=== PATIENT | female | born 1970 | race Two or more races ===

== ENCOUNTER → 2024-08-25 | Outpatient (CLI) | payer BC, SELFPAY ==
--- NOTE | 2024-08-25 12:52 | XR_ITS ---
Examination: Breast ultrasound, unilateral, right complete Date and time of exam: August 25, 2024 at 1325 hours INDICATIONS: Mammogram August 12, 2024 5 mm nodule indistinct margins inner right breast Technique: Real-time llanes scale ultrasonographic imaging performed right breast including all 4 quadrants as well as nipple retroareolar and axillary region. Findings: 3:00 cyst 6 x 3 x 5 mm No solid nodules IMPRESSION: BI-RADS Category 2: Benign findings
--- NOTE | 2024-08-25 12:52 | XR_ITS ---
Examination: Diagnostic digital mammography, unilateral, right Computer aided detection 3-D breast Tomosynthesis, unilateral Date and time of exam: August 25, 2024 1321 hours INDICATIONS: Mammogram August 12, 2024 5 mm nodule inner right breast Technique: Nonmagnified MLO, CC views of the right breast have been obtained, reconstructed from 3-D Tomosynthesis images. R2 computer aided detection program utilized for evaluation of suspicious masses and/or abnormal calcifications. 3-D Tomosynthesis images obtained. Findings: Scattered areas of fibroglandular density Right breast sonogram today indicates 3:00 Current mammogram demonstrates 2 circumscribed nodules inner right breast, each 4 to 5 mm Impression: BI-RADS Category 3: Probably benign findings One additional 6 month right mammogram follow-up is needed to document stability of 2 nodules inner right breast described above
== END | disposition home or self-care (01) ==
LOC: CDIM 12:35
PROVIDERS: PCP Internal Medicine; Referring Provider Internal Medicine; Visit Provider Internal Medicine
DX: R92.331 Mammographic heterogeneous density, right breast (principal); N63.10 Unspecified lump in the right breast, unspecified quadrant; N60.01 Solitary cyst of right breast
CPT/HCPCS: 76641; 77061; 77065; G0279

== ENCOUNTER 2024-10-16 08:02 | Outpatient (AMB) | payer BC, SELFPAY ==
[2024-10-16 08:24] VITALS: BP 116/78; PULSE 78; RESP 18; TEMP 36.4; O2SAT 98; BMI 35.9
--- NOTE | 2024-10-16 08:24 | PD.ORTHCLVIS ---
Vital signs 10/16/24 08:24 Height 1.52 m Height Method Stated Weight 83.546 kg Weight Measurement Method Standing Scale BMI 35.9 BP 116/78 Blood Pressure Source Automatic Cuff Blood Pressure Location Left Upper Arm Position Sitting Respiration 18 Pulse 78 Pulse Source Monitor Temp 97.6 F Temp Source Temporal Artery Scan Pulse Oximetry (%) 98 Oxygen Delivery Method Room Air Med/Allergies Allergies & Medications Allergies No Known Allergies Allergy (Verified 10/16/24 08:24) Medication Reconciliation ibuprofen 200 mg capsule 200 mg PO Q6H PRN 10/16/24 [History Confirmed 10/16/24] Exam Exam Breathing is nonlabored. Patient has a normal mood and affect. Bilateral extremities were evaluated and demonstrates sensation intact to light touch. Palpable pedal pulses are present. No significant edema is present. Bilateral hips were examined. The patient has no pain with log roll of the hips. Internal rotation to 30 degrees and external rotation to 30 degrees is painless. Negative FADIR. Left knee was examined today. The left knee is in reasonable alignment. Range of motion from 0-120 degrees. Knee is stable to varus and valgus as well as AP translation with <5mm. Patient has a negative McMurrays. There is no pain with patellofemoral compression and no crepitus noted. The knee is nontender to palpation. The right knee was also examined. The right knee is in varus alignment. Range of motion from 0-115 degrees. Knee is stable to varus and valgus as well as AP translation with <5mm. Patient has a negative McMurrays. There is no pain with patellofemoral compression and no crepitus noted. The knee is tender to palpation medially. X-rays from [facility] demonstrate complete obliteration of the medial joint space with osteophytes and varus deformity Assessment and Plan Problem List (1) Arthritis of knee, right: Status: Acute Plan: Patient is a pleasant 54-year-old female with right knee pain and right knee arthritis. We discussed nonoperative and operative options. She has tried Anti-inflammatories, prior arthroscopy, And physical therapy. At this point the pain is affecting her quality life and happiness to surgery. We discussed total knee replacement space loss of arthritis on x-ray and failure Of conservative treatment. The nature and purpose of the total knee replacement, alternative method(s) of treatment, the material risks involved, and the possibility of complications were fully explained to the patient. The patient does NOT have any of the following contraindications to TKA: - Active infection of the knee joint, OR - Active systemic bacteremia, OR - Active skin infection or open wound at surgical site, OR - Neuropathic arthritis, OR - Severe, rapidly progressive neurological disease, OR - Severe medical condition that makes risks of surgery outweigh the potential benefit The patient was told the most common risks and complications associated with a total knee replacement include, but are not limited to: blood clots in the leg, fatal pulmonary embolism, dislocation of the prosthesis, intraoperative and postoperative fractures of the femur or tibia, infection, failure of the prosthesis or grafting materials, complications from anesthesia, reactions to blood transfusions, postoperative leg length inequality, instability of the knee replacement, nerve damage or injury, vascular injury, delayed wound healing, infection, other injury or even . In addition, there are risks associated with anesthesia given during this operation. Also, the patient was told that after undergoing a total knee replacement there may still be persistent pain or disability. The patient was informed that the success of this operation in part depends upon the mechanical devices which are going to be implanted and that these devices can fail or malfunction, and may need to be repaired or replaced and there are no guarantees as to the longevity of this device or its parts and that it or its parts could fail prematurely. The patient was also notified that during the course of surgery, there may be a need to use bone graft from donors, and that any bone graft used will be carefully screened for communicable diseases, including AIDS, hepatitis, Azael-Creutzfeldt, or other diseases, but despite the screening procedures, there is a small chance that they could contract one of these diseases. Finally, the patient was asked to follow completely and fully with all advice and recommended treatments, and that recovery and ultimate outcome are affected by their compliance with recommended treatment. We discussed the risks, benefits and treatment alternatives, and the patient is interested in proceeding with surgery. We will try to set this up as expeditiously as possible. 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 Level 3 ([id number]) MA Intake Visit Data Collection New Patient or Established: Established Patient (seen at [facility] within 3 years) Reason for Visit:: right knee pain Seen by Clinical Staff ONLY (RN/MA): No Cigar Head Perforator Required: No PCP or OBGYN visit in last 3 months: Yes Hx Now: No Do You Feel Safe at Home: Yes Authorities Contacted: N/A Questionairres Past Medical History Past Medical History Have you ever been diagnosed with any of the following: Neurological Problems Seizures: No Cardiology Problems Congestive Heart Failure: No Respiratory Problems Chronic Obstructive Pulmonary Disease (COPD): No Stomache/Intestinal Problems Gall Bladder Disease: Yes (open) Obesity: Yes Genital/Urinary Problems Renal Disease: No Reproductive Problems Previous Pregnancies: Yes (10) Musculoskeletal Problems Arthritis: Yes Carpal Tunnel Syndrome: Yes (bilateral) Head,Eye,Nose,Throat Problems Cataracts: Yes (right) Endocrine Problems Diabetes Mellitus Type 1: No Diabetes Mellitus Type 2: No Blood Problems Anemia: No Psychologic Problems Depression: No Anxiety: No Post Traumatic Stress Disorder: No Other Problems Hospitalization: Yes (asthma child, surgery) Shingles: No Falls: No Blood Transfusions: No Blood Transfusion Reaction: No Anesthesia Reactions: No MRSA: No Chicken Pox: Yes Cancer: No Subjective Visit Visit for: new patient and knee Immunization / Flu Flu Vaccine in the Last 12 Months: No Flu Vaccine Exclusion Criteria: Refused by Patient History of Present Illness Chief complaint: Right knee 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 This been ongoing for over 5 years. She has had 2 prior meniscectomies in the past. They did not provide great relief. She is also tried extensive physical therapy and anti-inflammatories including ibuprofen and Voltaren. The pain is starting to affect her quality life and happiness. She reports the knee swells and she is always in pain. She does have pain at rest Personal History Occupation: DISABLED Hobbies: NONE Pain Pain level (0-10): 0 Associated signs & symptoms: none Ambulatory data Ambulatory device: none Treatments Improvement with previous injections: No Improvement with PT: No Improvement with NSAIDS: no Review of Systems Review of Systems: All systems negative unless otherwise noted in HPI.
== END 2024-10-16 08:44 | disposition home or self-care (01) ==
LOC: HODSRG 08:02
PROVIDERS: PCP Internal Medicine; Referring Provider Internal Medicine; Supervising Provider Orthopaedic Surgery Adult Reconstructive Orthopaedic Surgery; Visit Provider Orthopaedic Surgery Adult Reconstructive Orthopaedic Surgery
DX: M17.11 Unilateral primary osteoarthritis, right knee (principal); M25.561 Pain in right knee
CPT/HCPCS: 99203; G0463

== ENCOUNTER → 2024-11-17 | Outpatient (CLI) | payer MEDICAID, SELFPAY ==
--- NOTE | 2024-11-17 15:11 | XR_ITS ---
Examination: PA lateral chest 2 views TECHNIQUE: Upright PA lateral chest 2 views Exam date and time: November 17, 2024 1523 hours INDICATIONS: Preop knee surgery. FINDINGS: Normal heart size No pneumonia or pulmonary edema The osseous structures are intact IMPRESSION: No active disease
== END | disposition home or self-care (01) ==
PROVIDERS: Referring Provider Student in an Organized Health Care Education/Training Program; Visit Provider Student in an Organized Health Care Education/Training Program
DX: R05.9 Cough, unspecified (principal)
CPT/HCPCS: 71046

== ENCOUNTER → 2024-12-01 | Outpatient (CLI) | payer MEDICAID, SELFPAY ==
--- NOTE | 2024-12-01 11:56 | XR_ITS ---
Examination: Knee, left , 3 views Technique: Knee AP, lateral, oblique 3 views Date and time of exam: 25 1205 hours INDICATIONS: Left knee pain beginning one month ago. FINDINGS: Moderate tricompartment osteoarthritis No fracture Moderate knee effusion IMPRESSION: Moderate tricompartment osteoarthritis, most severe medial joint space
== END | disposition home or self-care (01) ==
LOC: SDIM 11:45
DX: M17.12 Unilateral primary osteoarthritis, left knee (principal)
CPT/HCPCS: 73562

== ENCOUNTER → 2024-12-11 | Outpatient (CLI) | payer MEDICAID, SELFPAY ==
--- NOTE | 2024-12-11 15:28 | XR_ITS ---
Examination: CT right lower extremity, without contrast. 2-D sagittal reconstructions. 2-D coronal reconstructions. 3-D reconstructions. Date and time of exam:December 11, 2024 1611 hrs. Indications: Diagnosis right knee osteoarthritis Several years CTDI: vol (mGy):26.2 DLP: (mGycm):1132 Technique: Multiple 1.25 mm axial sections of the right lower extremity without intravenous contrast have been obtained. 2-D sagittal and coronal reconstructions have been obtained. 3-D reconstructions have been obtained. Low dose protocols were performed. One or more of the following dose reduction techniques were used; automated exposure control, adjustment of the mA and/or KV according to patient size, use of iterative reconstruction technique. Findings: Moderate osteopenia Moderate narrowing right hip joint No right hip fracture or dislocation Severe right knee tricompartment osteoarthritis Severe narrowing medial joint space with subarticular sclerosis No fracture No patellar dislocation Impression: Severe right knee tricompartment osteoarthritis
== END | disposition home or self-care (01) ==
PROVIDERS: Referring Provider Orthopaedic Surgery Adult Reconstructive Orthopaedic Surgery; Visit Provider Orthopaedic Surgery Adult Reconstructive Orthopaedic Surgery
DX: M17.11 Unilateral primary osteoarthritis, right knee (principal)
CPT/HCPCS: 73700

== ENCOUNTER 2024-12-15 07:54 | Outpatient (AMB) | payer MEDICAID, SELFPAY ==
[2024-12-15 08:10] VITALS: BP 114/75; PULSE 73; RESP 19; TEMP 36.6; O2SAT 98; BMI 36.6
--- NOTE | 2024-12-15 08:10 | PD.ORTHCLVIS ---
Vital signs 12/15/24 08:10 Height 1.52 m Height Method Measured Weight 84.623 kg Weight Measurement Method Standing Scale BMI 36.6 BP 114/75 Blood Pressure Source Automatic Cuff Blood Pressure Location Right Upper Arm Position Sitting Respiration 19 Pulse 73 Pulse Source Monitor Temp 97.8 F Temp Source Oral Pulse Oximetry (%) 98 Oxygen Delivery Method Room Air Med/Allergies Allergies & Medications Allergies No Known Allergies Allergy (Verified 12/15/24 08:11) Medication Reconciliation ibuprofen 200 mg capsule 200 mg PO Q6H PRN 10/16/24 [History Confirmed 12/15/24] Exam Exam Breathing is nonlabored. Patient has a normal mood and affect. Bilateral extremities were evaluated and demonstrates sensation intact to light touch. Palpable pedal pulses are present. No significant edema is present. Bilateral hips were examined. The patient has no pain with log roll of the hips. Internal rotation to 30 degrees and external rotation to 30 degrees is painless. Negative FADIR. Left knee was examined today. The left knee is in reasonable alignment. Range of motion from 0-120 degrees. Knee is stable to varus and valgus as well as AP translation with <5mm. Patient has a negative McMurrays. There is no pain with patellofemoral compression and no crepitus noted. The knee is nontender to palpation. The right knee was also examined. The right knee is in varus alignment. Range of motion from 0-115 degrees. Knee is stable to varus and valgus as well as AP translation with <5mm. Patient has a negative McMurrays. There is no pain with patellofemoral compression and no crepitus noted. The knee is tender to palpation medially. X-rays from [facility] demonstrate complete obliteration of the right medial joint space with osteophytes and varus deformity Assessment and Plan Problem List (1) Arthritis of knee, right: Status: Acute Plan: Patient is a pleasant 54-year-old female with right knee pain and right knee arthritis. We discussed nonoperative and operative options. She has tried Anti-inflammatories, prior arthroscopy, And physical therapy. At this point the pain is affecting her quality life and happiness to surgery. We discussed total knee replacement in great detail. The nature and purpose of the total knee replacement, alternative method(s) of treatment, the material risks involved, and the possibility of complications were fully explained to the patient. The patient does NOT have any of the following contraindications to TKA: - Active infection of the knee joint, OR - Active systemic bacteremia, OR - Active skin infection or open wound at surgical site, OR - Neuropathic arthritis, OR - Severe, rapidly progressive neurological disease, OR - Severe medical condition that makes risks of surgery outweigh the potential benefit The patient was told the most common risks and complications associated with a total knee replacement include, but are not limited to: blood clots in the leg, fatal pulmonary embolism, dislocation of the prosthesis, intraoperative and postoperative fractures of the femur or tibia, infection, failure of the prosthesis or grafting materials, complications from anesthesia, reactions to blood transfusions, postoperative leg length inequality, instability of the knee replacement, nerve damage or injury, vascular injury, delayed wound healing, infection, other injury or even . In addition, there are risks associated with anesthesia given during this operation. Also, the patient was told that after undergoing a total knee replacement there may still be persistent pain or disability. The patient was informed that the success of this operation in part depends upon the mechanical devices which are going to be implanted and that these devices can fail or malfunction, and may need to be repaired or replaced and there are no guarantees as to the longevity of this device or its parts and that it or its parts could fail prematurely. The patient was also notified that during the course of surgery, there may be a need to use bone graft from donors, and that any bone graft used will be carefully screened for communicable diseases, including AIDS, hepatitis, Azael-Creutzfeldt, or other diseases, but despite the screening procedures, there is a small chance that they could contract one of these diseases. Finally, the patient was asked to follow completely and fully with all advice and recommended treatments, and that recovery and ultimate outcome are affected by their compliance with recommended treatment. We discussed the risks, benefits and treatment alternatives, and the patient is interested in proceeding with surgery. We will try to set this up as expeditiously as possible. Office Procedures GNS Level of Care Nursing/Assessment Patient Status: Established Patient Nursing Assessment/Reassesment: Medication Reconciliation, Update PMH in EMR and Vital Signs Coordination of Care: Complex Care/Chronic Disease 5 or more, Education Complex Pt/Fam, Consent,records obtained, informed consent, 2-3 Insurance Autorizations needed, Results/Orders obtained and Staff clarify orders Established Patient Charge Established Patient Point Assignment: 125 Established Patient Point Charge: EP Level 4 (120-155) [place] Intake Visit Data Collection New Patient or Established: Established Patient (seen at [facility] within 3 years) Reason for Visit:: PRE OP RIGHT TKA Do You Feel Safe at Home: Yes Questionairres Past Medical History Past Medical History Have you ever been diagnosed with any of the following: Neurological Problems Seizures: No Cardiology Problems Congestive Heart Failure: No Respiratory Problems Chronic Obstructive Pulmonary Disease (COPD): No Smoking: Yes Smoking Cessation Counseling: Yes Stomache/Intestinal Problems Gall Bladder Disease: Yes (open) Obesity: Yes Genital/Urinary Problems Renal Disease: No Reproductive Problems Previous Pregnancies: Yes (10) Musculoskeletal Problems Arthritis: Yes Carpal Tunnel Syndrome: Yes (bilateral) Head,Eye,Nose,Throat Problems Cataracts: Yes (right) Endocrine Problems Diabetes Mellitus Type 1: No Diabetes Mellitus Type 2: No Blood Problems Anemia: No Psychologic Problems Depression: No Anxiety: No Post Traumatic Stress Disorder: No Other Problems Hospitalization: Yes (asthma child, surgery) Shingles: No Falls: No Blood Transfusions: No Blood Transfusion Reaction: No Anesthesia Reactions: No MRSA: No Chicken Pox: Yes Cancer: No Subjective Visit Visit for: knee Immunization / Flu Flu Vaccine in the Last 12 Months: No Flu Vaccine Exclusion Criteria: No Exclusion Criteria History of Present Illness Chief complaint: PRE OP RIGHT TKA 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 This been ongoing for over 5 years. She has had 2 prior meniscectomies in the past. They did not provide great relief. She has also tried extensive physical therapy and anti-inflammatories including ibuprofen and Voltaren. The pain is starting to affect her quality life and happiness. She reports the knee swells and she is always in pain. She does have pain at rest Personal History Occupation: DISABLED Hobbies: NONE Red flag PMH: smoker BMI Counceling provided: Yes Pain Pain level (0-10): 0 Pain location: inside (medial) Pain timing: increases with activity Associated signs & symptoms: stiffness Ambulatory data Ambulatory device: none Treatments Improvement with previous injections: No Improvement with PT: No Improvement with NSAIDS: no Review of Systems Review of Systems: All systems negative unless otherwise noted in HPI.
--- NOTE | 2024-12-15 08:25 | XR_ITS ---
Examination: Left knee 4 views TECHNIQUE: AP oblique lateral axial left knee 4 views Exam date and time: October 17, 2024 at 0833 hours INDICATIONS: Left knee pain several weeks FINDINGS: Comparison January 31, 2025 Mild to moderate tricompartment osteoarthritis, most severe medial joint space No patellar dislocation No fracture IMPRESSION: Mild to moderate tricompartment osteoarthritis
== END 2024-12-15 08:30 | disposition home or self-care (01) ==
LOC: HODSRG 07:54
PROVIDERS: Supervising Provider Orthopaedic Surgery Adult Reconstructive Orthopaedic Surgery; Visit Provider Orthopaedic Surgery Adult Reconstructive Orthopaedic Surgery
DX: M17.11 Unilateral primary osteoarthritis, right knee (principal); M25.561 Pain in right knee
CPT/HCPCS: 73564; 99214; G0463

== ENCOUNTER 2024-12-21 08:20 | Day surgery (SDC) | payer MEDICAID, SELFPAY ==
[2024-12-17 10:16] VITALS: BMI 35.6
[2024-12-17 12:26] LABS: Basophils % (Auto) 1 % (0-2.5); Eosinophils # (Auto) 0.2 Thou/mm3 (0.0-0.5); Eosinophils % (Auto) 4 % (0-10); Hematocrit 38.3 % (36.0-46.0); Hemoglobin 12.7 g/dL (12.0-16.0); Immature Granulocytes % (Auto) 0 % (0-0); Immature Granulocytes Auto 0.01 Thou/mm3 (0.00-0.00); Lymphocytes % (Auto) 47 % (10-50); Mean Corpuscular HGB Conc 33.2 g/dl (31.0-37.0); Mean Corpuscular Hemoglobin 28.7 pg (25.0-35.0); Mean Corpuscular Volume 87 fL (80-100); Monocytes # (Auto) 0.4 Thou/mm3 (0.0-0.8); Monocytes % (Auto) 6 % (0-12); Neutrophils # (Auto) 2.8 Thou/mm3 (1.8-7.7); Neutrophils % (Auto) 43 % (37-80); Nucleated Red Blood Cell % 0 /100 WBC (0); Platelet Count 377 Thou/mm3 (140-440); RDW Standard Deviation 41.4 fL (36.4-46.3); Red Blood Count 4.43 Miln/mm3 (4.00-5.20); White Blood Count 6.4 Thou/mm3 (3.6-11.0)
[2024-12-17 12:37] LABS: Partial Thromboplastin Time 28.5 Seconds (22.0-36.0); Prothrombin Time 10.6 Seconds (9.0-12.2)
[2024-12-17 12:51] LABS: Alanine Aminotransferase 12 U/L (10-49); Albumin, Serum 4.2 gm/dL (3.5-5.0); Albumin/Globulin Ratio 1.8 (1.2-2.2); Alkaline Phosphatase 82 U/L (46-116); Anion Gap 7 (7-16); Aspartate Amino Transferase 14 U/L (0-34); BUN/Creatinine Ratio 16 Ratio (12-20); Bilirubin,Total 0.5 mg/dL (0.3-1.2); Blood Urea Nitrogen 14 mg/dL (9-23); Calcium 9.2 mg/dL (8.3-10.6); Calcium (Corrected) 9.2 mg/dL (8.5-10.1); Carbon Dioxide 26.9 mMol/L (20.0-31.0); Chloride 105 mMol/L (98-107); Creatinine (Component) 0.9 mg/dL (0.6-1.3); Estimated Creatinine Clearance 70.1 mL/min (>60); Globulin 2.3 gm/dL (2.3-3.5); Glucose 100 mg/dL (74-106); Osmolality,Calculated 278 (275-295); Sodium 139 mMol/L (136-145); Total Protein 6.5 gm/dL (5.7-8.2); eGFR > 60 See Note
[2024-12-21] VITALS (18 sets, daily range): BP systolic 115–144; BP diastolic 59–88; PULSE 71–91; RESP 15–22; TEMP 36.1–36.6; O2SAT 92–98; BMI 36.9; BMI 13.0
[2024-12-21] MEDS: ACETAMINOPHEN 325 MG TABLET 650 MG PO (09:04)
[2024-12-21] MEDS: PREGABALIN 75 MG CAPSULE PO (09:05)
[2024-12-21] MEDS: MELOXICAM 7.5 MG TABLET PO (09:05)
[2024-12-21] MEDS: RINGERS LACTATED 1000 ML 1,000 ML 20 ML IV (09:06)
--- NOTE | 2024-12-21 09:07 | SUR.PREOP ---
Patient expressed gratitude for prayer before their procedure.
--- NOTE | 2024-12-21 11:57 | ESOP_ITS ---
Date of Procedure 12/21/24 Pre Op Diagnosis right knee osteoarthritis Post Op Diagnosis right knee osteoarthritis Procedure right total knee replacement mathew Findings full thickness cartilage loss and osteophytes Procedure Description Indication: The patient is a 54 year old who has a long history of right knee pain. X-rays show degenerative arthritis involving the knee. Over the past several years the patient has had increasing pain, progressive limitation in function. He has failed conservative measures including activity modification, physical therapy, injections, anti-inflammatories, and assistive devices. After a lengthy discussion of the risks and benefits, the patient presents now for total knee replacement. The nature and purpose of the total knee replacement, alternative method(s) of treatment, the material risks involved, and the possibility of complications were fully explained to the patient. The patient was told the most common risks and complications associated with a total knee replacement include, but are not limited to blood clots in the leg, fatal pulmonary embolism, dislocation of the prosthesis, intraoperative and postoperative fractures of the femur or tibia, infection, failure of the prosthesis or grafting materials, complications from anesthesia, reactions to blood transfusions, postoperative leg length inequality, instability of the knee replacement, nerve damage or injury, vascular injury, delayed wound healing, infections, other injury or even . In addition, there are risks associated with anesthesia given during this operation, temporary or permanent numbness on the skin lateral to the incision can be a complication unique to total knee surgery, and kneeling can be painful after knee replacement surgery. Also, the patient was told that after undergoing a total knee replacement there may still be pain or disability. We discussed with the patient that we will be using a robot-assisted technology. We discussed that there is a possibility of converting to manual instrumentation. The patient was informed that the success of this operation in part depends upon the mechanical devices which are going to be implanted and that these devices can fail or malfunction, and may need to be repaired or replaced and there are no guarantees as to the longevity of this device or its part and that it or its parts could fail prematurely. Finally, the patient was asked to follow completely and fully with all advice and recommended treatments, and that recovery and ultimate outcome are affected by their compliance with recommended treatment. Surgical technique: Patient was marked and consented in the pre-operative area. The patient was brought to the operating room and placed on the operating table in a supine position. Prior to positioning, a timeout procedure was performed between the surgeon, the anesthesiologist, and the nursing staff where the patient and the operative side were identified and confirmed. After adequate general anesthetic was obtained, the right lower extremity was prepped and draped in the usual sterile fashion. A weight based dose of Cefazolin were administered within 1 hour prior to incision. The robot was preregistered and calirated before the incision. The extremity was exsanguinated with an esmarch badge and tourniquet inflated to 250mmHg. A midline incision was made. A median parapatellar arthrotomy was made. The patella was subluxed laterally. A medial release was performed to expose the medial tibia. His femoral and tibial pins were placed through an intra incisional manner for both cases. Every effort was made to ensure that the distalmost aspect of the pin was hung in the second cortex. The arrays were then tightened several times to ensure that it was fixed for the remainder of the case. Both femoral and tibial checkpoints were then placed. We then went through the registration process of the bone. We then assessed the knee deformity and attempted to correct it. We also used the robot to aid in judging laxity in both extension and flexion. Final based on laxity and alignment we changed the preoperative assessment to obtain proper proper implant positioning and to correct deformity. Attention was then placed to the tibia. We made a tibial cut using the robot ensuring that both the MCL and the patella tendon were protected with retractors. We then went to the femur and made the posterior cut followed by the anterior cut and the anterior chamfer. The bone was then removed and we made a distal femur cut and a posterior chamfer cut. We verified all cuts. A trial reduction was performed with a size 3 femoral component and a size 3 keeled tibial component. The patella tracked centrally, and no lateral retinacular release was necessary. The trial implants were removed. The arrays, pins, and checkpoints were all removed. We performed a verification that all pins were removed. The cut bone surfaces were lavaged. A size 3 right femoral component, a size 3 keeled tibial component were impacted into position. The knee was felt to be well balanced in the sagittal and coronal plane. The final 3x13 mm cruciate- substituting articular insert was impacted into the tibial tray. The knee was brought out to full extension, flexed up to 120 degrees. It was stable to varus and valgus stress and appropriately balanced in flexion and extension. The wounds were copiously irrigated following deflation of tourniquet. The medial retinaculum was reapproximated with #1 vicryl and quill. The subcutaneous tissues were closed with 0 and 2-0 interrupted Vicryl. The skin was closed with 3-0 Monofilament V loc suture. A sterile dressing was applied. The patient was transferred to a bed and brought to recovery in stable condition. The patient tolerated the procedure well. There were no intraoperative complications. Sponge and needle counts were correct times 2. As the attending surgeon, I attest I was present and performed the entire operation. Grafts/Implants Size 3 CR Femur Size 3 Tibia 13mm poly CS Anesthesia GETA Implants jason Pathology / specimen None Pathology comment: none Estimated Blood Loss 150 Surgeon Devaughn Sanz MD Surgical Staff Operation Date: 12/21/24 12:15 Case Staff WALKING DRAGLINE OPERATOR: Brent Wells RNavionics systems technician: Brooklyn Mas
--- NOTE | 2024-12-21 12:01 | XR_ITS ---
Examination: Right knee 2 views Technique one AP lateral right knee 2 views Exam date and time: December 21, 2024 at 1210 hours INDICATIONS: Postop knee arthroplasty. FINDINGS: Total right knee arthroplasty. Satisfactory alignment. Moderate osteopenia. No fracture IMPRESSION: Total right knee arthroplasty with satisfactory alignment
--- NOTE | 2024-12-21 12:43 | SUR.PHASEI ---
pt received to [facility]. vss. breathing even and unlabored. denies pain and nausea. dressing to right leg cdi. ppp. good cms noted. report frpm nurse santos and cylinder batcher paul.
--- NOTE | 2024-12-21 13:00 | SUR.PHASEI ---
report to nurse macias. pt remain stable. vss, dressing and breathing all wnl. denies pain and nausea.
--- NOTE | 2024-12-21 13:00 | SUR.PHASEI ---
1300: Pt. AAOx4, vitals stable, breathing unlabored, no complaint of pain or nausea, dressing to right knee CDI, no active bleed noted, bilateral dorsalis pedis pulses strong and regular, cap refill to bilateral feet less than 3 seconds, report received from Katy CROSS.
[2024-12-21] MEDS: CYCLObenzaPRINE 5 MG TABLET 10 MG PO (14:14)
[2024-12-21] MEDS: oxyCODONE HCL 5 MG IR TAB PO (14:15)
--- NOTE | 2024-12-21 15:37 | SUR.PHASEII ---
1537 Report received from Elsy CROSS
--- NOTE | 2024-12-21 15:37 | SUR.PHASEII ---
1537: Report given to Rita Chung RN. Pt. resting, vitals stable, breathing unlabored, dressing to right leg CDI.
--- NOTE | 2024-12-21 15:40 | SUR.PHASEII ---
6117 Post spinal anesthesia assessment complete patient has dermatome at S2 perineum
--- NOTE | 2024-12-21 16:18 | SUR.PHASEII ---
patient cleared by physical therapy to proceed with discharge
--- NOTE | 2024-12-21 16:29 | SUR.PHASEII ---
1629 Patient meets discharge criteria from recovery, awake and alert, breathing unlabored, vital signs stable, denies pain, dressing intact; no bleeding noted, patient drinking fluids; tolerating well, denies nausea, patient voided prior to discharge, patient assisted with dressing into her clothing by this typewriters functional tester, discharge instructions given to patient and patients sister with teach-back approach, both receptive of instructions. Patient given all her belongings prior to discharge, transported via wheelchair and left in a private vehicle.
== END 2024-12-21 16:29 | disposition home or self-care (01) ==
PROVIDERS: Anesthesiology; Referring Provider Orthopaedic Surgery Adult Reconstructive Orthopaedic Surgery; Visit Provider Orthopaedic Surgery Adult Reconstructive Orthopaedic Surgery
PROC: (CPT 27447; principal; 2024-12-21 12:15)
DX: M17.11 Unilateral primary osteoarthritis, right knee (principal); M25.761 Osteophyte, right knee
CPT/HCPCS: 27447; 20985; 36415; 73560; 80048; 80053; 85025; 85610; 85730; 97162; A4217; C1713; C1776; J0690; J1100; J2250; J2371; J2405; J2704; J2795; J3010; J3490; J7030; J7120; J7999; A4648; A4649; A9270

== ENCOUNTER 2025-01-05 13:02 | Outpatient (AMB) | payer MEDICAID, SELFPAY ==
[2025-01-05 13:15] VITALS: BP 125/80; PULSE 90; RESP 20; TEMP 36.1; O2SAT 97; BMI 33.3
--- NOTE | 2025-01-05 13:15 | PD.ORTHCLVIS ---
Vital signs 01/05/25 13:15 Height 1.57 m Height Method Measured Weight 82.696 kg Weight Measurement Method Standing Scale BMI 33.3 BP 125/80 Blood Pressure Source Automatic Cuff Blood Pressure Location Right Upper Arm Position Sitting Respiration 20 Pulse 90 Pulse Source Monitor Temp 97.0 F Temp Source Temporal Artery Scan Pulse Oximetry (%) 97 Oxygen Delivery Method Room Air Med/Allergies Allergies & Medications Allergies No Known Allergies Allergy (Verified 01/05/25 13:17) Medication Reconciliation ibuprofen 200 mg capsule 200 mg PO Q6H PRN pain 10/16/24 [History Confirmed 01/05/25] acetaminophen 500 mg tablet (Acetaminophen Extra Strength) 1,000 mg (2 x 500 mg) PO Q6H PRN pain #90 tabs 12/21/24 [Rx Confirmed 01/05/25] aspirin 81 mg tablet,delayed release 81 mg PO BID #60 tabs 12/21/24 [Rx Confirmed 01/05/25] gabapentin 300 mg capsule 300 mg PO .qhs #30 caps 12/21/24 [Rx Confirmed 01/05/25] sennosides 8.6 mg-docusate sodium 50 mg tablet (Senna-S) 1 tab-cap PO QDAY #30 tabs 12/21/24 [Rx Confirmed 01/05/25] cyclobenzaprine 5 mg tablet 5 mg PO QHS PRN muscle spasm #30 tabs 01/05/25 [Rx] oxycodone 5 mg tablet 5 mg PO Q6H PRN pain #28 tabs 01/05/25 [Rx] Exam Exam Breathing is nonlabored. Patient has a normal mood and affect. Bilateral extremities were evaluated and demonstrates sensation intact to light touch. Palpable pedal pulses are present. No significant edema is present. Bilateral hips were examined. The patient has no pain with log roll of the hips. Internal rotation to 30 degrees and external rotation to 30 degrees is painless. Negative FADIR. Left knee was examined today. The left knee is in reasonable alignment. Range of motion from 0-120 degrees. Knee is stable to varus and valgus as well as AP translation with <5mm. Patient has a negative McMurrays. There is no pain with patellofemoral compression and no crepitus noted. The knee is nontender to palpation. Right knee incision is c/d/i. ROM is 0-110 Assessment and Plan Problem List (1) Arthritis of knee, right: Status: Acute Plan: Patient is a pleasant 54-year-old female with right knee pain and right knee arthritis s/ r tka. She should finish her dvt prophylaxis and should start pt. Office Procedures GNS Level of Care Nursing/Assessment Patient Status: Established Patient Nursing Assessment/Reassesment: Medication Reconciliation, Update PMH in EMR and Vital Signs Coordination of Care: Complex Care/Chronic Disease 5 or more, Education Complex Pt/Fam, Consent,records obtained, informed consent, 4+ Authorizations needed, Results/Orders obtained and Staff clarify orders Established Patient Charge Established Patient Point Assignment: 130 Established Patient Point Charge: EP Level 4 (120-155) RI Intake Visit Data Collection New Patient or Established: Established Patient (seen at [facility] within 3 years) Reason for Visit:: 2 WEEK POST OP RIGHT TKA Questionairres Past Medical History Past Medical History Have you ever been diagnosed with any of the following: Neurological Problems Seizures: No Cardiology Problems Congestive Heart Failure: No Respiratory Problems Chronic Obstructive Pulmonary Disease (COPD): No Smoking: Yes Smoking Cessation Counseling: Yes Stomache/Intestinal Problems Gall Bladder Disease: Yes (open) Obesity: Yes Genital/Urinary Problems Renal Disease: No Reproductive Problems Previous Pregnancies: Yes (10) Musculoskeletal Problems Arthritis: Yes Carpal Tunnel Syndrome: Yes (bilateral) Head,Eye,Nose,Throat Problems Cataracts: Yes (right) Endocrine Problems Diabetes Mellitus Type 1: No Diabetes Mellitus Type 2: No Blood Problems Anemia: No Psychologic Problems Depression: No Anxiety: No Post Traumatic Stress Disorder: No Other Problems Hospitalization: Yes (asthma child, surgery) Shingles: No Falls: No Blood Transfusions: No Blood Transfusion Reaction: No Anesthesia Reactions: No MRSA: No Chicken Pox: Yes Cancer: No Surgical History Total Knee Replacement: Yes (RIGHT TKA) Subjective Visit Visit for: post op #1 and knee Immunization / Flu Flu Vaccine in the Last 12 Months: No Flu Vaccine Exclusion Criteria: No Exclusion Criteria History of Present Illness Chief complaint: PRE OP RIGHT TKA 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 She is 2 weeks postoperative and is doing well. She is using no assistive device. Her PT was delayed due to her sister being sick. Personal History Occupation: DISABLED Hobbies: NONE Red flag PMH: smoker BMI Counceling provided: Yes Pain Pain level (0-10): 0 Pain location: inside (medial), outside (lateral) and anterior Pain quality: sharp Pain timing: increases with activity Associated signs & symptoms: weakness and stiffness Ambulatory data Ambulatory device: none Treatments Improvement with previous injections: No Improvement with PT: No Improvement with NSAIDS: no Review of Systems Review of Systems: All systems negative unless otherwise noted in HPI.
== END 2025-01-05 13:39 | disposition home or self-care (01) ==
LOC: HODSRG 13:02
PROVIDERS: Supervising Provider Orthopaedic Surgery Adult Reconstructive Orthopaedic Surgery; Visit Provider Orthopaedic Surgery Adult Reconstructive Orthopaedic Surgery
DX: M17.11 Unilateral primary osteoarthritis, right knee (principal); M25.561 Pain in right knee
CPT/HCPCS: 99214; G0463

== ENCOUNTER 2025-01-26 08:30 | Outpatient (RCR) | payer MEDICAID, SELFPAY ==
--- NOTE | 2025-01-26 08:35 | PT.OIERPT ---
PT OP Initial Eval Patient Information Outpatient Physical Therapy Treatment Date: 01/26/25 Visit Reasons: right hip surgery Medical Diagnosis: Z96.651 Treatment Dx #1: R knee pain Treatment Dx #2: Decreased ROM of R knee Start of Care: 01/26/25 Date of Onset: 12/21/24 Smoking Status Smoking Status: Current every day smoker Cessation Counseling Provided: COLIN was advised that quitting smoking is the single most important factor to protect the health of themselves and their family. Discussed the benefits of quitting smoking with patient. Encouraged patient to quit smoking and provided Cessation assistance materials and resources. Tobacco Use: Cigarette Years smoked: 34 Are you interested in quitting?: Yes Would you like additional Smoking Cessation Counseling?: No Initial Assessment Subjective: Pt is 54 yr old female s/p R TKA presents ambulating without assistive device and reports pain and difficulty bending the knee. She is ambulating limited distances and does HH chores for short periods until the knee hurts and she rests. She was working at a [employer] but has been off since June. PMH: none reported Pt goal: to walk normal and get back to work Objective: R knee ArOM: PROM Flexion: 85 deg in sitting 90 deg Extension: -10 deg -5 deg SLR: 65 deg Quads: 4-/5 HS: 4-/5 Gait: flexed knee, mild lateral sway Assessment: Pt presents with decreased R knee strength, ROM and function with gait consistent with R TKA. Pt requires skilled therapy to meet goals and she has good rehab potential. Pt may benefit from Dynasplint if ROM doesn't meet goals. Eval followed by HEP with printout. Short Term and Straight Knife Machine Cutter Goals 1. Ind with HEP 2. Improved knee extension AROM to full and flexion to 110 deg 3. Pt will ambulate with full knee extension x community distances 4. RTW and tolerate work duties for a full shift with <=3/10 R knee pain Treatment Plan ? 1. Manual therapy ? 2. Therex ? 3. Modalities as indicated, moist heat, ice, estim Frequency and Duration: 2x a week for 18 sessions plus the evaluation. Will need more auth after 12 Rx sessions Certification Dates: 01/26/25 to 04/25/25 Procedure Charges OP PT Eval Mod Complex 30 minutes: Yes
== END 2025-01-27 23:59 | disposition home or self-care (01) ==
LOC: CPTX 08:30
PROVIDERS: PCP Orthopaedic Surgery Adult Reconstructive Orthopaedic Surgery; Referring Provider Orthopaedic Surgery Adult Reconstructive Orthopaedic Surgery; Visit Provider Orthopaedic Surgery Adult Reconstructive Orthopaedic Surgery
DX: M25.561 Pain in right knee (principal); Z96.651 Presence of right artificial knee joint; Z71.6 Tobacco abuse counseling; F17.210 Nicotine dependence, cigarettes, uncomplicated
CPT/HCPCS: 97162

== ENCOUNTER → 2025-02-03 | Outpatient (CLI) | payer MEDICAID, SELFPAY ==
--- NOTE | 2025-02-03 16:50 | XR_ITS ---
Examination: Right knee 4 views TECHNIQUE: PA flexion standing oblique lateral axial right knee 4 views Standing time: February 03, 2025 1658 hours INDICATIONS: Status post knee arthroplasty December 21, 2024. FINDINGS: Total right knee arthroplasty. Satisfactory alignment. No patellar dislocation. No loosening of the prosthetic components IMPRESSION: Total right knee arthroplasty with satisfactory alignment
== END | disposition home or self-care (01) ==
PROVIDERS: Referring Provider Orthopaedic Surgery Adult Reconstructive Orthopaedic Surgery; Visit Provider Orthopaedic Surgery Adult Reconstructive Orthopaedic Surgery
DX: M17.11 Unilateral primary osteoarthritis, right knee (principal); Z96.651 Presence of right artificial knee joint
CPT/HCPCS: 73564

== ENCOUNTER 2025-02-09 13:37 | Outpatient (AMB) | payer MEDICAID, SELFPAY ==
[2025-02-09 14:04] VITALS: BP 144/83; PULSE 76; RESP 18; TEMP 36.7; O2SAT 99; BMI 33.9
--- NOTE | 2025-02-09 14:04 | PD.ORTHCLVIS ---
Vital signs 02/09/25 14:04 Height 1.57 m Height Method Stated Weight 83.603 kg Weight Measurement Method Standing Scale BMI 33.9 BP 144/83 H Blood Pressure Source Automatic Cuff Blood Pressure Location Right Upper Arm Position Sitting Respiration 18 Pulse 76 Pulse Source Monitor Temp 98.1 F Temp Source Temporal Artery Scan Pulse Oximetry (%) 99 Oxygen Delivery Method Room Air Med/Allergies Allergies & Medications Allergies No Known Allergies Allergy (Verified 02/09/25 14:07) Medication Reconciliation ibuprofen 200 mg capsule 200 mg PO Q6H PRN pain 10/16/24 [History Confirmed 02/09/25] acetaminophen 500 mg tablet (Acetaminophen Extra Strength) 1,000 mg (2 x 500 mg) PO Q6H PRN pain #90 tabs 12/21/24 [Rx Confirmed 02/09/25] aspirin 81 mg tablet,delayed release 81 mg PO BID #60 tabs 12/21/24 [Rx Confirmed 02/09/25] gabapentin 300 mg capsule 300 mg PO .qhs #30 caps 12/21/24 [Rx Confirmed 02/09/25] sennosides 8.6 mg-docusate sodium 50 mg tablet (Senna-S) 1 tab-cap PO QDAY #30 tabs 12/21/24 [Rx Confirmed 02/09/25] cyclobenzaprine 5 mg tablet 5 mg PO QHS PRN muscle spasm #30 tabs 01/05/25 [Rx Confirmed 02/09/25] oxycodone 5 mg tablet 5 mg PO Q6H PRN pain #28 tabs 01/05/25 [Rx Confirmed 02/09/25] Exam Exam Breathing is nonlabored. Patient has a normal mood and affect. Bilateral extremities were evaluated and demonstrates sensation intact to light touch. Palpable pedal pulses are present. No significant edema is present. Bilateral hips were examined. The patient has no pain with log roll of the hips. Internal rotation to 30 degrees and external rotation to 30 degrees is painless. Negative FADIR. Left knee was examined today. The left knee is in reasonable alignment. Range of motion from 0-120 degrees. Knee is stable to varus and valgus as well as AP translation with <5mm. Patient has a negative McMurrays. There is no pain with patellofemoral compression and no crepitus noted. The knee is nontender to palpation. Right knee incision is c/d/i. ROM is 0-110. Knee is nontender X-rays from 02/03/2025 demonstrates a cementless right total knee replacement in good alignment and position. Assessment and Plan Problem List (1) Arthritis of knee, right: Status: Acute Plan: Patient is a pleasant 54-year-old female with right knee pain and right knee arthritis s/ r tka. She is doing well with PT. Office Procedures GNS Level of Care Nursing/Assessment Patient Status: Established Patient Nursing Assessment/Reassesment: Medication Reconciliation, Update PMH in EMR and Vital Signs Coordination of Care: Complex Care and Chronic Disease 1-5, Consent,records obtained, informed consent, Education Simp Pt/Fam, Results/Orders obtained and Staff clarify orders Established Patient Charge Established Patient Point Assignment: 90 Established Patient Point Charge: EP Level 3 (80-115) MA Intake Visit Data Collection New Patient or Established: Established Patient (seen at [facility] within 3 years) Reason for Visit:: 4 WK POST OP RT KNEE Seen by Clinical Staff ONLY (RN/MA): No Agate Setter Required: No PCP or OBGYN visit in last 3 months: Yes Hx Now: No Do You Feel Safe at Home: Yes Authorities Contacted: N/A Questionairres Past Medical History Past Medical History Have you ever been diagnosed with any of the following: Neurological Problems Seizures: No Cardiology Problems Congestive Heart Failure: No Respiratory Problems Chronic Obstructive Pulmonary Disease (COPD): No Smoking: Yes Smoking Cessation Counseling: Yes Stomache/Intestinal Problems Gall Bladder Disease: No Obesity: Yes Genital/Urinary Problems Renal Disease: No Reproductive Problems Previous Pregnancies: Yes (10) Musculoskeletal Problems Arthritis: Yes Carpal Tunnel Syndrome: Yes (bilateral) Head,Eye,Nose,Throat Problems Cataracts: Yes (right) Endocrine Problems Diabetes Mellitus Type 1: No Diabetes Mellitus Type 2: No Blood Problems Anemia: No Psychologic Problems Depression: No Anxiety: No Post Traumatic Stress Disorder: No Other Problems Hospitalization: No Shingles: No Falls: No Blood Transfusions: No Blood Transfusion Reaction: No Anesthesia Reactions: No MRSA: No Chicken Pox: Yes Cancer: No Surgical History Total Knee Replacement: Yes (RIGHT TKA) Subjective Visit Visit for: follow up visit and knee (RT KNEE ) Immunization / Flu Flu Vaccine in the Last 12 Months: No Flu Vaccine Exclusion Criteria: Refused by Patient and No Exclusion Criteria History of Present Illness Chief complaint: PRE OP RIGHT TKA 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 She is 6 weeks postoperative and is doing well. She is using no assistive device. She is doping well with PT. Personal History Occupation: DISABLED Hobbies: NONE Red flag PMH: smoker BMI Counceling provided: Yes Pain Pain level (0-10): 5 Pain duration: 11/2024 Pain location: inside (medial), outside (lateral) and anterior Pain quality: sharp and tingling Pain timing: night and increases with activity Associated signs & symptoms: numbness, weakness and stiffness Ambulatory data Ambulatory device: none Walking distance (minutes): 5 Treatments Number of previous injections: 0 Improvement with previous injections: No Number of Physical Therapy sessions: 7 Improvement with PT: Yes Improvement with NSAIDS: n/a Review of Systems Review of Systems: All systems negative unless otherwise noted in HPI.
== END 2025-02-09 14:21 | disposition home or self-care (01) ==
LOC: HODSRG 13:37
PROVIDERS: Supervising Provider Orthopaedic Surgery Adult Reconstructive Orthopaedic Surgery; Visit Provider Orthopaedic Surgery Adult Reconstructive Orthopaedic Surgery
DX: M17.11 Unilateral primary osteoarthritis, right knee (principal); Z96.651 Presence of right artificial knee joint
CPT/HCPCS: 99213; G0463

== ENCOUNTER 2025-02-12 13:00 | Outpatient (RCR) | payer MEDICAID, SELFPAY ==
--- NOTE | 2025-01-28 08:49 | PT.ODAYNRPT ---
PT Outpatient Daily Note OP Daily Note Outpatient Physical Therapy Treatment Date: 01/28/25 Visit Reasons: right knee surgery Subjective: Pt c/o pain in R knee, has been compliant with HEP. Objective: Please see flow sheet for ther ex list. Assessment: Pt demonstrates poor activity tolerance due to pain response. Plan: Continue with pOC. Length of Time (minutes) of Treatment: 30 Minutes Procedure Charges Therapeutic Exercise 30 minutes: Yes
--- NOTE | 2025-02-02 09:32 | PTNOTE_ITS ---
PT Outpatient Daily Note OP Daily Note Outpatient Physical Therapy Treatment Date: 02/02/25 Visit Reasons: right knee surgery Subjective: Pt reports R knee continues to b e stiff and painful, has been doing heel slides HEP. Objective: Please see flow sheet for ther ex list. Assessment: Pt demonstrates increase tolerance to intervention compared to previous sesssi on. Plan: Progress per post op protocol. Length of Time (minutes) of Treatment: 30 Minutes Procedure Charges Therapeutic Exercise 30 minutes: Yes
--- NOTE | 2025-02-04 09:05 | PT.ODAYNRPT ---
PT Outpatient Daily Note OP Daily Note Outpatient Physical Therapy Treatment Date: 02/04/25 Visit Reasons: right knee surgery Subjective: Continued pain with bending and knee tightness Objective: See F/S for therex MT: PROM into flexion x7' Assessment: PROM improved to about 95 deg with overpressure Plan: Improve ROM of R knee Length of Time (minutes) of Treatment: 30 Minutes Procedure Charges Therapeutic Exercise 30 minutes: Yes
--- NOTE | 2025-02-08 14:35 | PT.ODAYNRPT ---
PT Outpatient Daily Note OP Daily Note Outpatient Physical Therapy Treatment Date: 02/08/25 Visit Reasons: right knee surgery Subjective: Continued pain with bending and knee tightness Objective: See F/S for therex MT: PROM into flexion x7' Assessment: PROM improved to about 95 deg with overpressure Plan: Improve ROM of R knee Length of Time (minutes) of Treatment: 30 Minutes Procedure Charges Therapeutic Exercise 30 minutes: Yes
--- NOTE | 2025-02-10 09:07 | PT.ODAYNRPT ---
PT Outpatient Daily Note OP Daily Note Outpatient Physical Therapy Treatment Date: 02/10/25 Visit Reasons: right knee surgery Subjective: Pt reports R knee is really swollen today, walked about a mile yesterday. Pt followed up with surgeon, surgeon content with current progress. Objective: Please see flow sheet for ther ex list. Assessment: Pt presents in clinic with R LE edema, interventions performed within tolerable ROM due to pain response today. Plan: Continue with POC. Length of Time (minutes) of Treatment: 30 Minutes Procedure Charges Therapeutic Exercise 30 minutes: Yes
--- NOTE | 2025-02-12 14:10 | PT.ODAYNRPT ---
PT Outpatient Daily Note OP Daily Note Outpatient Physical Therapy Treatment Date: 02/12/25 Visit Reasons: right knee surgery Subjective: Pt content to share swelling has been going down and notices she is walking better due to it. Objective: Please see flow sheet for ther ex list. Assessment: Pt presents in clinic with decrease R knee edema resulting in improved gait pattern. Plan: Continue with POC. Length of Time (minutes) of Treatment: 30 Minutes Procedure Charges Therapeutic Exercise 30 minutes: Yes
== END 2025-02-27 23:59 | disposition home or self-care (01) ==
LOC: CPTX 13:00
PROVIDERS: PCP Orthopaedic Surgery Adult Reconstructive Orthopaedic Surgery; Referring Provider Orthopaedic Surgery Adult Reconstructive Orthopaedic Surgery; Visit Provider Orthopaedic Surgery Adult Reconstructive Orthopaedic Surgery
DX: M25.561 Pain in right knee (principal); Z96.651 Presence of right artificial knee joint
CPT/HCPCS: 97110

== ENCOUNTER → 2025-03-09 | Outpatient (CLI) | payer BC, MEDICAID, SELFPAY ==
--- NOTE | 2025-03-09 10:15 | XR_ITS ---
Examination: Breast ultrasound, unilateral, right Date and time of exam: March 09, 2025 1102 hours INDICATIONS: Mammogram August 25, 2024 circumscribed nodules inner right breast Technique: Real-time llanes scale ultrasonographic imaging performed right breast including all 4 quadrants as well as nipple retroareolar and axillary region. Findings: 3:00 cyst 7 x 5 mm 10:00 circumscribed nodule 6 x 6 mm IMPRESSION: BI-RADS Category 3: Probably benign findings Recommend 1 additional 6 month right breast sonogram follow-up to document stability of 10:00 nodule described above
--- NOTE | 2025-03-09 10:45 | XR_ITS ---
Examination: Diagnostic digital mammography, unilateral, right Computer aided detection 3-D breast Tomosynthesis, unilateral Date and time of exam: March 09, 2025 1126 hours INDICATIONS: Mammogram August 25, 2024 circumscribed nodules inner right breast, 2 in number Technique: Nonmagnified MLO, CC views of the right breast have been obtained, reconstructed from 3-D Tomosynthesis images. R2 computer aided detection program utilized for evaluation of suspicious masses and/or abnormal calcifications. 3-D Tomosynthesis images obtained. Findings: Scattered areas of fibroglandular density Stable nodules 2 in number inner right breast each measuring 4 to 5 mm Ultrasound study today demonstrates 10:00 nodule right breast circumscribed and 3:00 cyst 7 mm Impression: BI-RADS category 2: Benign findings Return to yearly follow-up mammography
== END | disposition home or self-care (01) ==
LOC: CDIM 10:46
DX: N60.01 Solitary cyst of right breast (principal); N63.15 Unspecified lump in the right breast, overlapping quadrants
CPT/HCPCS: 76641; 77061; 77065; G0279

== ENCOUNTER 2025-03-23 13:21 | Outpatient (AMB) | payer MEDICAID, SELFPAY ==
[2025-03-23 13:32] VITALS: PULSE 90; RESP 19; TEMP 36.6; O2SAT 96; BMI 33.1
--- NOTE | 2025-03-23 13:32 | ORTHONT_ITS ---
Vital signs 03/23/25 13:32 Height 1.57 m Height Method Stated Weight 81.788 kg Weight Measurement Method Standing Scale BMI 33.1 Position Sitting Respiration 19 Pulse 90 Pulse Source Monitor Temp 97.8 F Temp Source Temporal Artery Scan Pulse Oximetry (%) 96 Oxygen Delivery Method Room Air Comment PATIENT DENIED BP CHECK Med/Allergies Allergies & Medications Allergies No Known Allergies Allergy (Verified 03/23/25 13:33) Medication Reconciliation ibuprofen 200 mg capsule 200 mg PO Q6H PRN pain 10/16/24 [History Confirmed 03/23/25] acetaminophen 500 mg tablet (Acetaminophen Extra Strength) 1,000 mg (2 x 500 mg) PO Q6H PRN pain #90 tabs 12/21/24 [Rx Confirmed 03/23/25] aspirin 81 mg tablet,delayed release 81 mg PO BID #60 tabs 12/21/24 [Rx Confirmed 03/23/25] gabapentin 300 mg capsule 300 mg PO .qhs #30 caps 12/21/24 [Rx Confirmed 03/01 01/22] sennosides 8.6 mg-docusate sodium 50 mg tablet (Senna-S) 1 tab-cap PO QDAY #30 tabs 12/21/24 [Rx Confirmed 03/23/25] cyclobenzaprine 5 mg tablet 5 mg PO QHS PRN muscle spasm #30 tabs 01/05/25 [Rx Confirmed 03/23/25] oxycodone 5 mg tablet 5 mg PO Q6H PRN pain #28 tabs 01/05/25 [Rx Confirmed 03/23/25] Exam Exam Breathing is nonlabored. Patient has a normal mood and affect. Bilateral extremities were evaluated and demonstrates sensation intact to light touch. Palpable pedal pulses are present. No significant edema is present. Bilateral hips were examined. The patient has no pain with log roll of the hips. Internal rotation to 30 degrees and external rotation to 30 degrees is painless. Negative FADIR. Left knee was examined today. The left knee is in reasonable alignment. Range of motion from 0-120 degrees. Knee is stable to varus and valgus as well as AP translation with <5mm. Patient has a negative McMurrays. There is no pain with patellofemoral compression and no crepitus noted. The knee is nontender to palpation. Right knee incision is c/d/i. ROM is 0-110. Knee is nontender X-rays from 02/03/2025 demonstrates a cementless right total knee replacement in good alignment and position. Assessment and Plan Problem List (1) Arthritis of knee, right: Status: Acute Plan: Patient is a pleasant 54-year-old female with right knee pain and right knee arthritis s/ r tka. She is doing well with PT. Office Procedures GNS Level of Care Nursing/Assessment Patient Status: Established Patient Nursing Assessment/Reassesment: Medication Reconciliation, Update PMH in EMR and Vital Signs Coordination of Care: Complex Care and Chronic Disease 1-5, Education Complex Pt/Fam, Consent,records obtained, informed consent, Results/Orders obtained and Staff clarify orders Established Patient Charge Established Patient Point Assignment: 95 Established Patient Point Charge: EP Level 3 (80-115) [place] Intake Visit Data Collection New Patient or Established: Established Patient (seen at [facility] within 3 years) Reason for Visit:: FOLLOW UP TKA Seen by Clinical Staff ONLY (RN/MA): No PCP or OBGYN visit in last 3 months: Yes Hx Now: No Do You Feel Safe at Home: Yes Authorities Contacted: N/A Questionairres Past Medical History Past Medical History Have you ever been diagnosed with any of the following: Neurological Problems Seizures: No Cardiology Problems Congestive Heart Failure: No Respiratory Problems Chronic Obstructive Pulmonary Disease (COPD): No Smoking: Yes Smoking Cessation Counseling: Yes Stomache/Intestinal Problems Gall Bladder Disease: No Obesity: Yes Genital/Urinary Problems Renal Disease: No Reproductive Problems Previous Pregnancies: Yes (10) Musculoskeletal Problems Arthritis: Yes Carpal Tunnel Syndrome: Yes (bilateral) Head,Eye,Nose,Throat Problems Cataracts: Yes (right) Endocrine Problems Diabetes Mellitus Type 1: No Diabetes Mellitus Type 2: No Blood Problems Anemia: No Psychologic Problems Depression: No Anxiety: No Post Traumatic Stress Disorder: No Other Problems Hospitalization: No Shingles: No Falls: No Blood Transfusions: No Blood Transfusion Reaction: No Anesthesia Reactions: No MRSA: No Chicken Pox: Yes Cancer: No Surgical History Total Knee Replacement: Yes (RIGHT TKA) Subjective Visit Visit for: follow up visit Immunization / Flu Flu Vaccine in the Last 12 Months: No Flu Vaccine Exclusion Criteria: No Exclusion Criteria History of Present Illness Chief complaint: PRE OP RIGHT TKA 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 She is 12 weeks postoperative and is doing well. Personal History Occupation: DISABLED Hobbies: NONE Red flag PMH: smoker BMI Counceling provided: Yes Pain Pain level (0-10): 0 Pain duration: 11/2024 Pain location: inside (medial), outside (lateral) and anterior Pain quality: sharp and tingling Pain timing: night and increases with activity Associated signs & symptoms: none Ambulatory data Ambulatory device: none Walking distance (minutes): 5 Treatments Number of previous injections: 0 Improvement with previous injections: No Number of Physical Therapy sessions: 7 Improvement with PT: No Improvement with NSAIDS: no Review of Systems Review of Systems: All systems negative unless otherwise noted in HPI.
== END 2025-03-23 13:39 | disposition home or self-care (01) ==
LOC: HODSRG 13:21
PROVIDERS: Supervising Provider Orthopaedic Surgery Adult Reconstructive Orthopaedic Surgery; Visit Provider Orthopaedic Surgery Adult Reconstructive Orthopaedic Surgery
DX: M17.11 Unilateral primary osteoarthritis, right knee (principal); M25.561 Pain in right knee; Z96.651 Presence of right artificial knee joint
CPT/HCPCS: 99213; G0463

== ENCOUNTER → 2025-07-09 | Outpatient (CLI) | payer BC, MEDICAID, SELFPAY ==
[2025-07-09 16:28] LABS: Basophils # (Auto) 0.1 Thou/mm3 (0.0-0.2); Basophils % (Auto) 1 % (0-2.5); Eosinophils # (Auto) 0.2 Thou/mm3 (0.0-0.5); Eosinophils % (Auto) 2 % (0-10); Hematocrit 38.4 % (36.0-46.0); Hemoglobin 13.0 g/dL (12.0-16.0); Immature Granulocytes Auto 0.02 Thou/mm3 (0.00-0.00); Lymphocytes # (Auto) 3.1 Thou/mm3 (1.0-4.8); Lymphocytes % (Auto) 36 % (10-50); Mean Corpuscular HGB Conc 33.9 g/dl (31.0-37.0); Mean Corpuscular Hemoglobin 29.2 pg (25.0-35.0); Mean Corpuscular Volume 86 fL (80-100); Monocytes # (Auto) 0.6 Thou/mm3 (0.0-0.8); Monocytes % (Auto) 7 % (0-12); Neutrophils # (Auto) 4.6 Thou/mm3 (1.8-7.7); Neutrophils % (Auto) 54 % (37-80); Nucleated Red Blood Cell # 0.00 Thou/mm3 (0.00-0.00); Nucleated Red Blood Cell % 0 /100 WBC (0); Platelet Count 413 Thou/mm3 (140-440); RDW Standard Deviation 39.8 fL (36.4-46.3); Red Blood Count 4.45 Miln/mm3 (4.00-5.20); White Blood Count 8.6 Thou/mm3 (3.6-11.0)
[2025-07-09 16:33] LABS: INR 0.9 (0.9-1.3); Partial Thromboplastin Time 26.5 Seconds (22.0-36.0); Prothrombin Time 10.1 Seconds (9.0-12.2)
[2025-07-09 16:46] LABS: Alanine Aminotransferase 10 U/L (10-49); Albumin, Serum 4.5 gm/dL (3.5-5.0); Albumin/Globulin Ratio 1.9 (1.2-2.2); Alkaline Phosphatase 88 U/L (46-116); Anion Gap 10 (7-16); Aspartate Amino Transferase 16 U/L (0-34); BUN/Creatinine Ratio 16 Ratio (12-20); Bilirubin,Total 0.2 mg/dL (0.3-1.2); Blood Urea Nitrogen 14 mg/dL (9-23); Calcium 9.9 mg/dL (8.3-10.6); Calcium (Corrected) 9.9 mg/dL (8.5-10.1); Carbon Dioxide 30.2 mMol/L (20.0-31.0); Chloride 106 mMol/L (98-107); Creatinine (Component) 0.9 mg/dL (0.6-1.3); Globulin 2.4 gm/dL (2.3-3.5); Glucose 113 mg/dL (74-106); Osmolality,Calculated 292 (275-295); Potassium 4.1 mMol/L (3.4-5.1); Sodium 146 mMol/L (136-145); Total Protein 6.9 gm/dL (5.7-8.2); eGFR > 60 See Note
== END | disposition home or self-care (01) ==
LOC: COPL 15:48
PROVIDERS: Referring Provider Surgery; Visit Provider Surgery
DX: Z12.11 Encounter for screening for malignant neoplasm of colon (principal)
CPT/HCPCS: 36415; 80053; 85025; 85610; 85730

== ENCOUNTER → 2025-07-12 | Day surgery (SDC) | payer BC, MEDICAID, SELFPAY ==
--- NOTE | 2025-07-09 07:54 | EKG_ITS ---
[facility] Test Date: 2025-07-12 Pat Name: COLIN SANCHEZ Department: Room: - Gender: Female Lathe Tender: [facility] : 1970 Requested By: Benja Rahman Order Number: [id number] Reading MD: Benja Rahman Measurements Intervals [place] Rate: 66 P: 27 MN: 148 QRS: 35 QRSD: 113 T: 55 QT: 428 QTc: 449 Interpretive Statements SINUS RHYTHM WITH SINUS ARRHYTHMIA MODERATE INTRAVENTRICULAR CONDUCTION DELAY Compared to ECG 01/31/2023 10:54:01 Intraventricular conduction delay now present Incomplete right bundle-branch block no longer present /store/S0/[id number]/ecg/[id number].pdf
[2025-07-09 14:38] VITALS: BMI 35.2
--- NOTE | 2025-07-12 13:12 | SUR.PREOP ---
Called and made Dr. Hernandez aware pt. stated only drank half of the bowel prep and bowel movement are brown. Dr. Hernandez stated to give the pt. the option to drink the other half of the bowel prep and have colonoscopy at 5pm tonight or reschedule procedure. Pt. decided to reschedule. Advised pt. to call Dr. Hernandez's office to reschedule, pt. verbalized understanding.
== END | disposition home or self-care (01) ==
PROVIDERS: Referring Provider Surgery; Visit Provider Surgery
PROC: 0DJD8ZZ Inspection of Lower Intestinal Tract, Via Natural or Artificial Opening Endoscopic (ICD-10-PCS; CPT 45378; principal; 2025-07-12 13:45)
DX: Z12.11 Encounter for screening for malignant neoplasm of colon (principal); Z80.0 Family history of malignant neoplasm of digestive organs; M19.90 Unspecified osteoarthritis, unspecified site; Z53.8 Procedure and treatment not carried out for other reasons
CPT/HCPCS: 80053; 93005

== ENCOUNTER 2025-08-20 08:22 | Outpatient (AMB) | payer BC, MEDICAID, SELFPAY ==
--- NOTE | 2025-08-20 08:36 | PD.ORTHCLVIS ---
Vital signs 08/20/25 08:37 Height 1.52 m Height Method Measured Weight 83.518 kg Weight Measurement Method Standing Scale BMI 36.1 BP 127/84 Blood Pressure Source Automatic Cuff Blood Pressure Location Left Upper Arm Position Sitting Respiration 18 Pulse 78 Pulse Source Monitor Temp 97.4 F Temp Source Temporal Artery Scan Pulse Oximetry (%) 94 L Oxygen Delivery Method Room Air Med/Allergies Allergies & Medications Allergies No Known Allergies Allergy (Verified 08/20/25 08:38) Medication Reconciliation ibuprofen 600 mg tablet 600 mg PO QID PRN pain 07/09/25 [History Confirmed 08/20/25] Exam Exam Breathing is nonlabored. Patient has a normal mood and affect. Bilateral extremities were evaluated and demonstrates sensation intact to light touch. Palpable pedal pulses are present. No significant edema is present. Bilateral hips were examined. The patient has no pain with log roll of the hips. Internal rotation to 30 degrees and external rotation to 30 degrees is painless. Negative FADIR. Left knee was examined today. The left knee is in reasonable alignment. Range of motion from 0-120 degrees. Knee is stable to varus and valgus as well as AP translation with <5mm. Patient has a negative McMurrays. There is no pain with patellofemoral compression and no crepitus noted. The knee is nontender to palpation. Right knee incision is c/d/i. ROM is 0-110. Knee is nontender X-rays from 02/03/2025 demonstrates a cementless right total knee replacement in good alignment and position. Assessment and Plan Problem List (1) Arthritis of knee, right: Status: Acute Plan: Patient is a pleasant 54-year-old female with right knee pain and right knee arthritis s/ r tka. She is done with pt. Office Procedures GNS Level of Care Nursing/Assessment Patient Status: Established Patient Nursing Assessment/Reassesment: Medication Reconciliation, Update PMH in EMR and Vital Signs Coordination of Care: Complex Care and Chronic Disease 1-5, Education Complex Pt/Fam, Consent,records obtained, informed consent, Results/Orders obtained and Staff clarify orders Established Patient Charge Established Patient Point Assignment: 95 Established Patient Point Charge: EP Level 3 (80-115) [place] Intake Visit Data Collection New Patient or Established: Established Patient (seen at [facility] within 3 years) Reason for Visit:: C/O KNEE PAIN Seen by Clinical Staff ONLY (RN/MA): No Salary Manager Required: No PCP or OBGYN visit in last 3 months: Yes Hx Now: No Do You Feel Safe at Home: Yes Authorities Contacted: N/A Questionairres Past Medical History Past Medical History Have you ever been diagnosed with any of the following: Neurological Problems Seizures: No Cardiology Problems Congestive Heart Failure: No Respiratory Problems Chronic Obstructive Pulmonary Disease (COPD): No Smoking: Yes Smoking Cessation Counseling: Yes Stomache/Intestinal Problems Gall Bladder Disease: No Obesity: Yes Genital/Urinary Problems Renal Disease: No Reproductive Problems Previous Pregnancies: Yes (10) Musculoskeletal Problems Arthritis: Yes Carpal Tunnel Syndrome: Yes (bilateral) Head,Eye,Nose,Throat Problems Cataracts: Yes (right) Endocrine Problems Diabetes Mellitus Type 1: No Diabetes Mellitus Type 2: No Blood Problems Anemia: No Psychologic Problems Depression: No Anxiety: No Post Traumatic Stress Disorder: No Other Problems Hospitalization: No Shingles: No Falls: No Blood Transfusions: No Blood Transfusion Reaction: No Anesthesia Reactions: No MRSA: No Chicken Pox: Yes Cancer: No Surgical History Total Knee Replacement: Yes (RIGHT TKA) Subjective Visit Visit for: follow up visit Immunization / Flu Flu Vaccine in the Last 12 Months: No Flu Vaccine Exclusion Criteria: No Exclusion Criteria History of Present Illness Chief complaint: C/O KNEE PAIN 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 She is 6 months postoperative and is doing well. Personal History Occupation: DISABLED Hobbies: NONE Red flag PMH: smoker BMI Counceling provided: Yes Pain Pain level (0-10): 0 Pain duration: 11/2024 Pain location: inside (medial), outside (lateral) and anterior Pain quality: sharp and tingling Pain timing: night and increases with activity Associated signs & symptoms: none Ambulatory data Ambulatory device: none Walking distance (minutes): 5 Treatments Number of previous injections: 0 Improvement with previous injections: No Number of Physical Therapy sessions: 7 Improvement with PT: No Improvement with NSAIDS: no Review of Systems Review of Systems: All systems negative unless otherwise noted in HPI.
[2025-08-20 08:37] VITALS: BP 127/84; PULSE 78; RESP 18; TEMP 36.3; O2SAT 94; BMI 36.1
== END 2025-08-20 08:56 | disposition home or self-care (01) ==
LOC: HODSRG 08:22
PROVIDERS: Supervising Provider Orthopaedic Surgery Adult Reconstructive Orthopaedic Surgery; Visit Provider Orthopaedic Surgery Adult Reconstructive Orthopaedic Surgery
DX: M25.561 Pain in right knee (principal); Z96.651 Presence of right artificial knee joint; E66.9 Obesity, unspecified; Z68.36 Body mass index [BMI] 36.0-36.9, adult
CPT/HCPCS: 99213; G0463